=== PATIENT | female | born 1995 | race Caucasian/White ===

== ENCOUNTER 2016-06-18 23:59 | Emergency (ER) | payer OTHER ==
[~2016-06-18] VITALS: Ht 157.5 cm; Wt 60.8 kg
[2016-06-19] MEDS ORDERED: IV NS 0.9% 1,000 ML BAG IV ONE (01:30)
[2016-06-19] MEDS ORDERED: ACETAMINOPHEN ES 500 MG TABLET ONE (01:35)
[2016-06-19 01:47] LABS: BASOPHILS # (AUTO) 0.1 /CMM (0.0-0.2); BASOPHILS % (AUTO) 0.5 % (0.0-2.0); DIFF TOTAL % 100 %; EOSINOPHILS # (AUTO) 0.2 /CMM (0.0-0.7); EOSINOPHILS % (AUTO) 1.9 % (0.0-6.0); HEMATOCRIT 35 % (33-45); HEMOGLOBIN 11.8 g/dL (11.5-14.8); LYMPHOCYTES # (AUTO) 1.7 /CMM (0.8-4.8); LYMPHOCYTES % (AUTO) 16.1 % (20.0-44.0); MEAN CORPUSCULAR HEMOGLOBIN 28 PG (26.0-33.0); MEAN CORPUSCULAR HGB CONC 33 g/dl (31.0-36.0); MEAN CORPUSCULAR VOLUME 85 fL (82-100); MONOCYTES # (AUTO) 0.7 /CMM (0.1-1.30); MONOCYTES % (AUTO) 6.4 % (2.0-12.0); NEUTROPHILS % (AUTO) 75.1 % (43.0-81.0); PLATELET COUNT (AUTO) 327 /CMM (150-450); RED BLOOD CELL COUNT(AUTO) 4.15 MIL/uL (4.0-5.2); WHITE BLOOD COUNT (AUTO) 10.6 K/uL (4.3-11.0)
[2016-06-19 01:54] LABS: ADD UA MICROSCOPIC YES; KETONES,URINE NEGATIVE (NEGATIVE); LEUKOCYTE ESTERASE ,URINE NEGATIVE (NEGATIVE)
[2016-06-19 01:58] LABS: CREATININE 0.5 mg/dL (0.6-1.3); POTASSIUM 3.3 mmol/L (3.5-5.1)
[2016-06-19 02:02] LABS: INR 0.9 (0.87-1.13); PROTHROMBIN TIME 9.7 SECS (9.5-12.7)
[2016-06-19 02:04] LABS: ALBUMIN 3.2 g/dL (3.4-5.0); BILIRUBIN,TOTAL 0.1 mg/dL (0.2-1.0); INDIRECT BILIRUBIN 0.1 mg/dL (0.0-1.1); TOTAL PROTEIN, SERUM 7.2 g/dL (6.4-8.2)
[2016-06-19 02:09] LABS: ADD URINE CULTURE YES; RBC,URINE NONE SEEN /HPF (0-2)
[2016-06-19] MEDS ORDERED: ACETAMINOPHEN 325 MG TABLET PO ONE (02:30)
[2016-06-19 06:21] VITALS: BP 122/62
== END 2016-06-19 04:16 | disposition home or self-care (01) ==
LOC: ER 23:59
DX: O23.42 Unspecified infection of urinary tract in pregnancy, second trimester (principal); R10.9 Unspecified abdominal pain; G43.909 Migraine, unspecified, not intractable, without status migrainosus; Z3A.16 16 weeks gestation of pregnancy
CPT/HCPCS: 36415; 76805-TC; 80048-TC; 80076-TC; 81000-TC; 85025-TC; 85730-TC; 87086-TC; 87186-TC; A4606; Z7610

== ENCOUNTER 2018-06-21 12:16 | Emergency (ER) | payer OTHER ==
[~2018-06-21] VITALS: Ht 157.5 cm; Wt 68.0 kg
--- NOTE | 2018-06-21 12:16 | NUR ---
PT BIB SELF C/O DIZZINESS X 1WEEK, -N/V, CAME FROM GERALDINE 2WKS AGO, PT IS AAOX4, NOT IN RESPIRATORY DISTRESS, V/S STABLE, KEPT RESTED AND COMFORTABLE.
--- NOTE | 2018-06-21 12:49 | NUR ---
SEEN AND EXAMINED BY KAYLAN TIMBER HEWER.
[2018-06-21] MEDS ORDERED: METOCLOPRAMIDE HCL 10 MG/2 ML VIAL IV ONE (13:00)
[2018-06-21] MEDS ORDERED: diphenhydrAMINE HCL 50 MG/ML VIAL IV ONE (13:00)
[2018-06-21] MEDS ORDERED: IV NS 0.9% 250 ML BAG IV ONE (13:00)
[2018-06-21] MEDS ORDERED: diphenhydrAMINE HCL 50 MG/ML VIAL ONE (13:07)
[2018-06-21] MEDS ORDERED: METOCLOPRAMIDE HCL 10 MG/2 ML VIAL ONE (13:07)
--- NOTE | 2018-06-21 13:17 | NUR ---
RADIOLOGY AT BEDSIDE FOR XRAY.
[2018-06-21] MEDS ORDERED: IV NS 0.9% 1,000 ML BAG IV ONE (14:00)
--- NOTE | 2018-06-21 15:45 | NUR ---
NURSING SUP MADE AWARE OF TELE BED REQUEST
--- NOTE | 2018-06-21 15:53 | NUR ---
IV removed. Catheter intact and site benign. Pressure and 4x4 applied to site. No bleeding noted. Patient discharged to home in stable condition. Written and verbal after care instructions given. Patient verbalizes understanding of instruction.
[2018-06-21 15:54] VITALS: BP 112/76
== END 2018-06-21 15:55 | disposition home or self-care (01) ==
LOC: ER 12:18
DX: G43.909 Migraine, unspecified, not intractable, without status migrainosus (principal); R07.89 Other chest pain; R42 Dizziness and giddiness
CPT/HCPCS: 71045; 93005; 96361; 96374; 96375; 99283; A4216; A4606; J1200; J2765; J7030 ×2; J7050; Z7610

== ENCOUNTER 2018-11-28 12:18 | Emergency (ER) | payer SELFPAY ==
[~2018-11-28] VITALS: Ht 157.5 cm; Wt 67.1 kg
--- NOTE | 2018-11-28 13:21 | NUR ---
TO ER BED 14, NO APPARENT CHANGE IN CONDITION
--- NOTE | 2018-11-28 14:50 | NUR ---
PT REC'D BLESSING WRAP TO THE RT FOOT AND Crutches dispensed. Pt instructed on proper use of crutches. Patient able to demonstrate correct use of crutches.
--- NOTE | 2018-11-28 15:00 | NUR ---
Patient discharged to home in stable condition. Written and verbal after care instructions given. Patient verbalizes understanding of instruction AND RX. PT AMBULATED OUT ON CRUTCHES.
[2018-11-28 15:04] VITALS: BP 119/82
== END 2018-11-28 14:58 | disposition home or self-care (01) ==
LOC: ER 12:25
DX: S93.691A Other sprain of right foot, initial encounter (principal); X50.1XXA Overexertion from prolonged static or awkward postures, initial encounter; Y93.01 Activity, walking, marching and hiking; Y92.89 Other specified places as the place of occurrence of the external cause; Y99.8 Other external cause status
CPT/HCPCS: 73630-TC; 84703-TC

== ENCOUNTER 2022-04-28 05:25 | Emergency (ER) | payer OTHER ==
[~2022-04-28] VITALS: Ht 157.5 cm; Wt 72.6 kg
[2022-04-28 05:25] VITALS: BP 134/79
[2022-04-28] MEDS ORDERED: IBUPROFEN 600 MG TABLET ONE (06:38)
[2022-04-28] MEDS ORDERED: BACI30OI9 TP (06:43)
[2022-04-28] MEDS ORDERED: IBUP-1953 PO (06:43)
[2022-04-28] MEDS ORDERED: SULF1TAB48 PO (06:43)
[2022-04-28] MEDS ORDERED: CEPH500T PO (06:43)
[2022-04-28] MEDS ORDERED: IBUPROFEN 600 MG TABLET PO ONE (07:00)
== END 2022-04-28 07:13 | disposition home or self-care (01) ==
LOC: ER 05:27
DX: L03.032 Cellulitis of left toe (principal); Z79.899 Other long term (current) drug therapy

== ENCOUNTER 2023-08-01 23:57 | Emergency (ER) | payer OTHER ==
[~2023-08-01] VITALS: Ht 157.5 cm; Wt 81.6 kg
[~2023-08-01 23:57] MED LIST: BACI30OI9 TP; CEPH500T PO; IBUP-1953 PO; SULF1TAB48 PO
[2023-08-02 02:28] VITALS: BP 126/80; TEMP 98; O2SAT 99
== END 2023-08-02 02:34 | disposition home or self-care (01) ==
LOC: ER 08-02 00:03
DX: R00.2 Palpitations (principal)